=== PATIENT | male | born 1970 | race Caucasian/White ===

== ENCOUNTER 2021-01-12 01:20 | Day surgery (SDC) | payer BC, SELFPAY ==
[2020-12-29 10:27] VITALS: BMI 34.4
[2021-01-12 07:33] VITALS: BP 145/77; PULSE 77; RESP 17; TEMP 35.8; O2SAT 97
[2021-01-12] MEDS: LACTATED RINGERS 1,000 ML 150 ML IV CONT (07:45)
--- NOTE | 2021-01-12 08:28 | WPDANESEPPF ---
Anes - Initial Pre Proc Eval Procedure: Operation Date: 01/12/21 09:00 Proposed Procedures p Colonoscopy - Paul Quinones MD Date/Time: 01/12/21 08:28 Surgeon: Paul Quinones MD Pre Op Diagnosis: positive cologuard Patient Data Age: 50 Gender: M Height: 1.78 m Weight: 109.1 kg Last Vital Signs Temp 96.5 F L 01/12/21 07:33 Pulse 77 01/12/21 07:33 Resp 17 01/12/21 07:33 BP 145/77 H 01/12/21 07:33 Pulse Ox 97 01/12/21 07:33 Allergies Allergy/AdvReac Type Severity Reaction Status Date / Time chlorpromazine Allergy Mild Unknown Verified 01/12/21 07:30 paroxetine Allergy Mild Unknown Verified 01/12/21 07:30 prednisone Allergy Mild Unknown Verified 01/12/21 07:30 sertraline Allergy Mild Unknown Verified 01/12/21 07:30 thioridazine Allergy Mild Unknown Verified 01/12/21 07:30 topiramate Allergy Mild Unknown Verified 01/12/21 07:30 BEE STINGS Allergy Mild Unknown Uncoded 01/12/21 07:30 Home Medications Medication Instructions Recorded Confirmed Type cholecalciferol (vitamin D3) 1,250 1,250 mcg PO WEEKLY cap 07/29/19 01/12/21 History mcg (50,000 unit) capsule duloxetine 60 mg capsule,delayed 120 mg PO DAILY cap 07/29/19 01/12/21 History release olanzapine 20 mg tablet 20 mg PO DAILY 07/29/19 01/12/21 History quetiapine 400 mg tablet 800 mg PO DAILY tablet 07/29/19 01/12/21 History atorvastatin 10 mg tablet 10 mg PO QHS #90 tablet 09/23/20 01/12/21 Rx oxcarbazepine 300 mg tablet 2,100 mg PO DAILY tablet 10/22/20 01/12/21 History fenofibrate nanocrystallized 145 145 mg PO DAILY #90 tablet 12/10/20 01/12/21 Rx mg tablet metoprolol succinate 100 mg 100 mg PO DAILY #90 tablet 12/10/20 01/12/21 Rx tablet,extended release 24 hr levothyroxine 50 mcg tablet 50 mcg PO DAILY #90 tablet 12/21/20 01/12/21 Rx Patient hx anesthesia problems: none Family hx anesthesia problems: none PMFSH Past Medical History Medical History ADD (attention deficit disorder) Bipolar disorder CKD (chronic kidney disease) stage 3, GFR 30-59 ml/min Dyslipidemia Hypertension Hypothyroidism Tachycardia Vitamin D deficiency Family History Family History Father Bipolar 1 disorder Grandparent Bipolar 1 disorder Social History Social History Smoking status: Former smoker Tobacco type: cigarettes Second hand tobacco smoke exposure: No Smoking end date: 07/30/99 Alcohol intake: never Substance use: never Substance use type: does not use Living arrangements: alone Gender identity (if verbalized by the patient): Male Spiritual care concerns: No Agree to blood products: Yes Anes - Eval Final PreProcedure Day of Procedure 01/12/21 08:28 Patient weight: obese Heart: regular rate and rhythm Lungs: clear to auscultation Airway: Mallampati scale class III Neurological: alert and oriented Last oral intake: >/= 8 hours ASA classification: III Emergent: no Anesthetic plan: proceed Anesthesia type and monitoring: general GIVS and standard monitoring Informed Consent: The patient's anesthetic plan and its attendant risks and benefits were discussed with the patient/family/POA. Questions were solicited and answers provided to the satisfaction of the patient/family/POA.
--- NOTE | 2021-01-12 09:02 | PM.HPGS ---
History of Present Illness History of Present Illness Consent: Risks, benefits, and alternatives have been discussed and questions answered. Patient agrees to proceed with procedure. Chief complaint: positive cologuard Narrative: Reggie Houser is a 50 year old male here for positive cologuard, never had a colonoscopy Review of Systems Constitutional: Constitutional: Denies headache(s) and Denies weakness Eyes: Eyes: Denies blurry vision ENT: Reports Normal hearing present, Denies headache(s) and Denies neck pain Cardiovascular: Cardiovascular: Denies chest pain and Denies dyspnea Respiratory: Respiratory: Denies dyspnea Gastrointestinal: Gastrointestinal: Reports no additional gastrointestinal complaints Genitourinary: Genitourinary: Denies dysuria Musculoskeletal: Musculoskeletal: Denies neck pain Integumentary/Breasts: Skin/Breast: Denies dry skin Neurologic: Reports Normal hearing present, Denies headache(s) and Denies weakness Psychiatric: Psychiatric: Denies anxiety Endocrine: Endocrine: Denies change in body appearance Hematologic/Lymphatic: Hematologic/Lymphatic: Denies easy bleeding Allergic/Immunologic: Allergic/Immunologic: Denies urticaria PMFSH Past Medical History Medical History ADD (attention deficit disorder) Bipolar disorder CKD (chronic kidney disease) stage 3, GFR 30-59 ml/min Dyslipidemia Hypertension Hypothyroidism Tachycardia Vitamin D deficiency Family History Family History Father Bipolar 1 disorder Grandparent Bipolar 1 disorder Social History Social History Smoking status: Former smoker Tobacco type: cigarettes Second hand tobacco smoke exposure: No Smoking end date: 07/30/99 Alcohol intake: never Substance use: never Substance use type: does not use Living arrangements: alone Gender identity (if verbalized by the patient): Male Spiritual care concerns: No Agree to blood products: Yes Meds Home Medications and Allergies Home Medications Medication Instructions Recorded Confirmed Type cholecalciferol (vitamin D3) 1,250 1,250 mcg PO WEEKLY cap 07/29/19 01/12/21 History mcg (50,000 unit) capsule duloxetine 60 mg capsule,delayed 120 mg PO DAILY cap 07/29/19 01/12/21 History release olanzapine 20 mg tablet 20 mg PO DAILY 07/29/19 01/12/21 History quetiapine 400 mg tablet 800 mg PO DAILY tablet 07/29/19 01/12/21 History atorvastatin 10 mg tablet 10 mg PO QHS #90 tablet 09/23/20 01/12/21 Rx oxcarbazepine 300 mg tablet 2,100 mg PO DAILY tablet 10/22/20 01/12/21 History fenofibrate nanocrystallized 145 145 mg PO DAILY #90 tablet 12/10/20 01/12/21 Rx mg tablet metoprolol succinate 100 mg 100 mg PO DAILY #90 tablet 12/10/20 01/12/21 Rx tablet,extended release 24 hr levothyroxine 50 mcg tablet 50 mcg PO DAILY #90 tablet 12/21/20 01/12/21 Rx Allergies Allergy/AdvReac Type Severity Reaction Status Date / Time chlorpromazine Allergy Mild Unknown Verified 01/12/21 07:30 paroxetine Allergy Mild Unknown Verified 01/12/21 07:30 prednisone Allergy Mild Unknown Verified 01/12/21 07:30 sertraline Allergy Mild Unknown Verified 01/12/21 07:30 thioridazine Allergy Mild Unknown Verified 01/12/21 07:30 topiramate Allergy Mild Unknown Verified 01/12/21 07:30 BEE STINGS Allergy Mild Unknown Uncoded 01/12/21 07:30 Vital Signs Vital Signs - 24 hr 01/12/21 07:33 Temperature 96.5 F L Pulse Rate 77 Respiratory Rate 17 Blood Pressure 145/77 H Pulse Oximetry 97 Exam Const: General: comfortable and no acute distress HENMT: General nose exam: Normal nares present Eyes: General: appearance normal, both eyes and all related structures Neck: Neck: no JVD Resp: Auscultation: clear to auscultation bilaterally Cardio: Rate: regular rate Rhythm: regular rhyt
[2021-01-12 09:38] VITALS: BP 75/44; PULSE 71; RESP 17; O2SAT 96
--- NOTE | 2021-01-12 09:39 | SUR.OPER ---
transverse colon polyp specimen not retrieved Dr. Landeros notified
[2021-01-12 09:48] VITALS: BP 86/56; PULSE 75; RESP 16; O2SAT 98
[2021-01-12 09:58] VITALS: BP 116/80; PULSE 72; RESP 22; O2SAT 99
== END 2021-01-12 10:07 | disposition home or self-care (01) ==
PROVIDERS: PCP Family Medicine; Visit Provider Internal Medicine Gastroenterology
PROC: 0DJD8ZZ Inspection of Lower Intestinal Tract, Via Natural or Artificial Opening Endoscopic (ICD-10-PCS; CPT 45378; principal; 2021-01-12 09:00)
DX: R19.5 Other fecal abnormalities (principal); K63.5 Polyp of colon; I12.9 Hypertensive chronic kidney disease with stage 1 through stage 4 chronic kidney disease, or unspecified chronic kidney disease; N18.30 Chronic kidney disease, stage 3 unspecified; E03.9 Hypothyroidism, unspecified; E55.9 Vitamin D deficiency, unspecified; F31.9 Bipolar disorder, unspecified; F98.8 Other specified behavioral and emotional disorders with onset usually occurring in childhood and adolescence; Z87.891 Personal history of nicotine dependence
CPT/HCPCS: 45385; J2704; J7120

== ENCOUNTER 2021-12-18 15:22 | Emergency (ER) | payer OTHER, BC, SELFPAY ==
[2021-12-18 15:39] VITALS: BP 129/85; PULSE 87; RESP 20; TEMP 37.3; O2SAT 98
--- NOTE | 2021-12-18 15:58 | ED.WOUNDLAC ---
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 Patient work at [employer]. He currently rates his pain 2/10 and has tried no [id number] treatment prior to arrival. He is up-to-date on his tetanus vaccine. Related Data Home Medications Medication Instructions Recorded Confirmed duloxetine 60 mg capsule,delayed 120 mg PO DAILY 07/29/19 10/11/21 release olanzapine 20 mg tablet 20 mg PO DAILY 07/29/19 10/11/21 quetiapine 400 mg tablet 800 mg PO DAILY 07/29/19 10/11/21 oxcarbazepine 600 mg tablet 1,200 mg PO BID 10/11/21 10/11/21 (Trileptal) Allergies Allergy/AdvReac Type Severity Reaction Status Date / Time chlorpromazine Allergy Mild Unknown Verified 10/11/21 13:00 paroxetine Allergy Mild Unknown Verified 10/11/21 13:00 prednisone Allergy Mild Unknown Verified 12/18/21 15:48 sertraline Allergy Mild Unknown Verified 10/11/21 13:00 thioridazine Allergy Mild Unknown Verified 10/11/21 13:00 topiramate Allergy Mild Unknown Verified 10/11/21 13:00 BEE STINGS Allergy Mild Unknown Uncoded 10/11/21 13:00 Review of Systems Review of Systems: CONSTITUTIONAL: Denies body aches, fever, chills, or sweats. EYES: Denies visual changes, redness, or discharge. ENT: Denies rhinorrhea, congestion, sore throat, or otalgia. CARDIOVASCULAR: Denies chest pain, palpitations, or edema. RESPIRATORY: Denies cough or dyspnea. GASTROINTESTINAL: Denies abdominal pain, nausea, vomiting, or diarrhea. GENITOURINARY: Denies dysuria or hematuria. SKIN: Denies rash, itching. + Wounds to left hand and left knee. MUSCULOSKELETAL: Denies back pain, joint pain, or myalgia. NEUROLOGIC: Denies headache, numbness, tingling, or weakness. PSYCH: Denies depression or anxiety. [facility] Past Medical History Medical History ADD (attention deficit disorder) Bipolar disorder CKD (chronic kidney disease) stage 3, GFR 30-59 ml/min Dyslipidemia Hypertension Hypothyroidism Tachycardia Vitamin D deficiency Family History Family History Father Bipolar 1 disorder Grandparent Bipolar 1 disorder Social History Social History Tobacco type: cigarettes Second hand tobacco smoke exposure: No Smoking end date: 07/30/99 Alcohol intake: never Substance use: never Substance use type: does not use Gender identity (if verbalized by the patient): Male Spiritual care concerns: No Agree to blood products: Yes Comments At time of signature, I have reviewed and agree with nursing past medical, surgical, social and family history unless otherwise noted. Please see nursing chart for further information. There is no relevant family history pertinent to the presenting complaint Exam Narrative: GENERAL: Well-appearing, well-nourished, and in no acute distress. HEAD: Normocephalic, atraumatic. EYES: EOMI. No redness or drainage. Conjunctivae normal. ENT: Mucous membranes pink and moist. NECK: Normal AROM. CHEST: No respiratory distress. EXTREMITIES: Left hand: 1 x 1 cm area of superficial almost full skin avulsion to the base of the fifth finger. The skin still does overlie the underlying tissue by a small connect area. There is no bony tenderness of the hand or fingers. Distal sensation intact. Capillary refill normal. Radial pulse normal. Full range of motion of all fingers without pain. No edema or ecchymosis. Left knee: Patient has a 7 x 4 cm area of multiple linear abrasions overlying the patella with mild surrounding
== END 2021-12-18 16:08 | disposition home or self-care (01) ==
PROVIDERS: Emergency Provider Nurse Practitioner; PCP Family Medicine
DX: S61.402A Unspecified open wound of left hand, initial encounter (principal); S81.002A Unspecified open wound, left knee, initial encounter; W10.9XXA Fall (on) (from) unspecified stairs and steps, initial encounter; Y99.0 Civilian activity done for income or pay; I12.9 Hypertensive chronic kidney disease with stage 1 through stage 4 chronic kidney disease, or unspecified chronic kidney disease; N18.30 Chronic kidney disease, stage 3 unspecified; E78.5 Hyperlipidemia, unspecified; E03.9 Hypothyroidism, unspecified; F31.9 Bipolar disorder, unspecified; Z87.891 Personal history of nicotine dependence
CPT/HCPCS: 99212; G0463

== ENCOUNTER → 2022-04-12 09:00 | Outpatient (CLI) | payer BC, SELFPAY ==
--- NOTE | ~2022-04-12 | XR_ITS ---
EXAMINATION: XR chest 2V DATE: 04/12/2022 09:22 INDICATION: Unspecified asthma, uncomplicated. Cough. TECHNIQUE: Frontal and lateral views of the chest were obtained. COMPARISON: Chest single view 08/21/2007 FINDINGS: The chest demonstrates clear lungs without pneumonia, pleural effusion, or pneumothorax. Ca rdiomegaly is noted. IMPRESSION: 1. Cardiomegaly. Reviewed, dictated and finalized at location B. IMPRESSION: 1. Cardiomegaly.
== END ==
PROVIDERS: PCP Family Medicine; Visit Provider Family Medicine
DX: J45.909 Unspecified asthma, uncomplicated (principal); I51.7 Cardiomegaly
CPT/HCPCS: 71046

== ENCOUNTER 2023-02-02 02:42 | Day surgery (SDC) | payer BC, SELFPAY ==
[2023-01-27 08:41] VITALS: BMI 34.4
[2023-02-02 09:26] VITALS: BP 119/77; PULSE 82; RESP 17; TEMP 36.3; O2SAT 97; BMI 34.9
[2023-02-02] MEDS: LACTATED RINGERS 1,000 ML 150 ML IV CONT (09:34)
--- NOTE | 2023-02-02 09:47 | WPDANESEPPF ---
Anes - Initial Pre Proc Eval Procedure: Operation Date: 02/02/23 10:30 Proposed Procedures p Colonoscopy - Paul Quinones MD Date/Time: 02/02/23 09:47 Surgeon: Paul Quinones MD Pre Op Diagnosis: hx colon polyps Patient Data Age: 52 Gender: M Height: 1.78 m Weight: 110.3 kg Last Vital Signs Temp 97.3 F L 02/02/23 09:26 Pulse 82 02/02/23 09:26 Resp 17 02/02/23 09:26 BP 119/77 02/02/23 09:26 Pulse Ox 97 02/02/23 09:26 O2 Del Method Room Air 02/02/23 09:26 Allergies Allergy/AdvReac Type Severity Reaction Status Date / Time chlorpromazine Allergy Mild Unknown Verified 02/02/23 09:24 paroxetine Allergy Mild Unknown Verified 02/02/23 09:24 prednisone Allergy Mild Unknown Verified 02/02/23 09:24 sertraline Allergy Mild Unknown Verified 02/02/23 09:24 thioridazine Allergy Mild Unknown Verified 02/02/23 09:24 topiramate Allergy Mild Unknown Verified 02/02/23 09:24 BEE STINGS Allergy Mild Unknown Uncoded 02/02/23 09:24 Home Medications Medication Instructions Recorded Confirmed Type duloxetine 60 mg capsule,delayed 120 mg PO DAILY 07/29/19 02/02/23 History release olanzapine 20 mg tablet 20 mg PO DAILY 07/29/19 02/02/23 History quetiapine 400 mg tablet 800 mg PO DAILY 07/29/19 02/02/23 History metoprolol succinate 100 mg 100 mg PO DAILY #90 tabs 09/02/22 02/02/23 Rx tablet,extended release 24 hr fenofibrate nanocrystallized 145 145 mg PO DAILY #90 tabs 09/21/22 02/02/23 Rx mg tablet cholecalciferol (vitamin D3) 50 50 mcg PO DAILY #90 tabs 10/12/22 02/02/23 Rx mcg (2,000 unit) tablet levothyroxine 75 mcg tablet 75 mcg PO DAILY #90 tabs 10/12/22 02/02/23 Rx oxcarbazepine 600 mg tablet 1,800 mg PO BID 10/18/22 02/02/23 History (Trileptal) atorvastatin 10 mg tablet 10 mg PO QHS #90 tabs 12/22/22 02/02/23 Rx memantine 5 mg tablet 10 mg PO BID 01/27/23 02/02/23 History propranolol 20 mg tablet 40 mg PO BID 01/27/23 02/02/23 History Patient hx anesthesia problems: none Family hx anesthesia problems: none Results Review: All pre-operative results and documents have been reviewed as part of the pre-operative evaluation. [facility] Past Medical History Medical History ADD (attention deficit disorder) Bipolar disorder CKD (chronic kidney disease) stage 3, GFR 30-59 ml/min Dyslipidemia Hypertension Hypothyroidism Positive colorectal cancer screening using Cologuard test (~10/2020) Somnolence, daytime, controlled Tachycardia Vitamin D deficiency Family History Family History Father Bipolar 1 disorder Grandparent Bipolar 1 disorder Social History Social History Smoking status: Former smoker Tobacco type: cigarettes Second hand tobacco smoke exposure: No Smoking end date: 07/30/99 Alcohol intake: never Substance use: never Substance use type: does not use Lack of Transportation: No Lack of Food: Never True Current Housing: I Have Housing Concerned About Future Housing: No Difficulty Paying Gas/Electric Bills: No Difficulty Paying for Meds: No Currently Unemployed: No Education: Bachelor's Degree Difficulty w/ Childcare or Family Care: No Living arrangements: alone Occupation/Education: occupation Gender identity (if verbalized by the patient): Male Spiritual care concerns: No Agree to blood products: Yes Anes - Eval Final PreProcedure Day of Procedure 02/02/23 09:47 Patient weight: obese Heart: regular rate and rhythm Lungs: clear to auscultation Airway: Mallampati scale class II Neurological: alert and oriented Last oral intake: >/= 8 hours ASA classification: III Emergent: no Anesthetic plan: proceed Anesthesia type and monitoring: general GIVS and standard monitoring Results Review: All pre-operative results and docu
--- NOTE | 2023-02-02 10:06 | PM.HPGS ---
History of Present Illness History of Present Illness Consent: Risks, benefits, and alternatives have been discussed and questions answered. Patient agrees to proceed with procedure. Chief complaint: hx colon polyps Narrative: Reggie Houser is a 52 year old male with colon polyp in 2020, prep was not the best Review of Systems Constitutional: Constitutional: Denies headache(s) and Denies weakness Eyes: Eyes: Denies blurry vision ENT: Reports Normal hearing present, Denies headache(s) and Denies neck pain Cardiovascular: Cardiovascular: Denies chest pain and Denies dyspnea Respiratory: Respiratory: Denies dyspnea Gastrointestinal: Gastrointestinal: Reports no additional gastrointestinal complaints Genitourinary: Genitourinary: Denies dysuria Musculoskeletal: Musculoskeletal: Denies neck pain Integumentary/Breasts: Skin/Breast: Denies dry skin Neurologic: Reports Normal hearing present, Denies headache(s) and Denies weakness Psychiatric: Psychiatric: Denies anxiety Endocrine: Endocrine: Denies change in body appearance Hematologic/Lymphatic: Hematologic/Lymphatic: Denies easy bleeding Allergic/Immunologic: Allergic/Immunologic: Denies urticaria PMFSH Past Medical History Medical History (Updated 02/02/23 @ 10:07 by Paul Quinones MD) ADD (attention deficit disorder) Bipolar disorder CKD (chronic kidney disease) stage 3, GFR 30-59 ml/min Colon polyp Dyslipidemia Hypertension Hypothyroidism Positive colorectal cancer screening using Cologuard test (~10/2020) Somnolence, daytime, controlled Tachycardia Vitamin D deficiency Family History Family History Father Bipolar 1 disorder Grandparent Bipolar 1 disorder Social History Social History Smoking status: Former smoker Tobacco type: cigarettes Second hand tobacco smoke exposure: No Smoking end date: 07/30/99 Alcohol intake: never Substance use: never Substance use type: does not use Lack of Transportation: No Lack of Food: Never True Current Housing: I Have Housing Concerned About Future Housing: No Difficulty Paying Gas/Electric Bills: No Difficulty Paying for Meds: No Currently Unemployed: No Education: Bachelor's Degree Difficulty w/ Childcare or Family Care: No Living arrangements: alone Occupation/Education: occupation Gender identity (if verbalized by the patient): Male Spiritual care concerns: No Agree to blood products: Yes Meds Home Medications and Allergies Home Medications Medication Instructions Recorded Confirmed Type duloxetine 60 mg capsule,delayed 120 mg PO DAILY 07/29/19 02/02/23 History release olanzapine 20 mg tablet 20 mg PO DAILY 07/29/19 02/02/23 History quetiapine 400 mg tablet 800 mg PO DAILY 07/29/19 02/02/23 History metoprolol succinate 100 mg 100 mg PO DAILY #90 tabs 09/02/22 02/02/23 Rx tablet,extended release 24 hr fenofibrate nanocrystallized 145 145 mg PO DAILY #90 tabs 09/21/22 02/02/23 Rx mg tablet cholecalciferol (vitamin D3) 50 50 mcg PO DAILY #90 tabs 10/12/22 02/02/23 Rx mcg (2,000 unit) tablet levothyroxine 75 mcg tablet 75 mcg PO DAILY #90 tabs 10/12/22 02/02/23 Rx oxcarbazepine 600 mg tablet 1,800 mg PO BID 10/18/22 02/02/23 History (Trileptal) atorvastatin 10 mg tablet 10 mg PO QHS #90 tabs 12/22/22 02/02/23 Rx memantine 5 mg tablet 10 mg PO BID 01/27/23 02/02/23 History propranolol 20 mg tablet 40 mg PO BID 01/27/23 02/02/23 History Allergies Allergy/AdvReac Type Severity Reaction Status Date / Time chlorpromazine Allergy Mild Unknown Verified 02/02/23 09:24 paroxetine Allergy Mild Unknown Verified 02/02/23 09:24 prednisone Allergy Mild Unknown Verified 02/02/23 09:24 sertraline Allergy Mild Unknown Verified 02/02/23 09:24 thioridazine Allergy Mild Unknown Verified 02/02/23 09:24 topiramate Allergy
[2023-02-02 10:26] VITALS: BP 111/73; PULSE 79; RESP 19; O2SAT 95
[2023-02-02 10:36] VITALS: BP 117/76; PULSE 79; RESP 19; O2SAT 97
[2023-02-02 10:46] VITALS: BP 125/80; PULSE 78; RESP 15; O2SAT 97
== END 2023-02-02 10:53 | disposition home or self-care (01) ==
PROVIDERS: PCP Family Medicine; Visit Provider Internal Medicine Gastroenterology
PROC: 0DJD8ZZ Inspection of Lower Intestinal Tract, Via Natural or Artificial Opening Endoscopic (ICD-10-PCS; CPT 45378; principal; 2023-02-02 10:30)
DX: Z09 Encounter for follow-up examination after completed treatment for conditions other than malignant neoplasm (principal); K63.5 Polyp of colon; K64.8 Other hemorrhoids; F98.8 Other specified behavioral and emotional disorders with onset usually occurring in childhood and adolescence; I12.9 Hypertensive chronic kidney disease with stage 1 through stage 4 chronic kidney disease, or unspecified chronic kidney disease; N18.30 Chronic kidney disease, stage 3 unspecified; E78.5 Hyperlipidemia, unspecified; E03.9 Hypothyroidism, unspecified; R40.0 Somnolence; F31.9 Bipolar disorder, unspecified; R00.0 Tachycardia, unspecified; E55.9 Vitamin D deficiency, unspecified; Z87.891 Personal history of nicotine dependence; E66.9 Obesity, unspecified; Z68.34 Body mass index [BMI] 34.0-34.9, adult
CPT/HCPCS: 45385; 45380; 88305; J2704; J7120

== ENCOUNTER 2024-09-03 08:01 | Emergency (ER) | payer BC, SELFPAY ==
--- NOTE | 2024-09-03 08:23 | ED.URI ---
HPI - URI/Sore Throat General Chief Complaint: Upper Respiratory Infection Stated Complaint: cough symptoms Time Seen by Provider: 09/03/24 08:22 Source: patient Mode of arrival: ambulatory Limitations: no limitations History of Present Illness HPI Narrative: Reggie is a 53-year-old male patient presenting to the clinic today with complaints of a cough. He had influenza A back on August 05. He has been having a dry nonproductive cough x5 weeks. He denies any chest pain or shortness of breath. Denies any nasal congestion or sore throat. Has felt feverish at times but has not checked his temperature. MD elicited complaint: cough Related Data Home Medications ?Medication ?Instructions ?Recorded ?Confirmed ?Last Taken ?Type quetiapine 400 mg tablet 800 mg PO DAILY 07/29/19 08/05/24 Unknown History duloxetine 60 mg capsule,delayed 120 mg PO DAILY 11/29/23 08/05/24 Unknown History release (Cymbalta) olanzapine 20 mg tablet (Zyprexa) 20 mg PO DAILY 11/29/23 08/05/24 Unknown History memantine 10 mg tablet 10 mg PO QPM 06/11/24 08/05/24 Unknown History oxcarbazepine 600 mg tablet 900 mg PO BID 06/11/24 08/05/24 Unknown History (Trileptal) propranolol 80 mg tablet 80 mg PO BID 06/11/24 08/05/24 Unknown History propranolol 20 mg tablet mg PO 07/26/24 08/05/24 Unknown History Allergies Allergy/AdvReac Type Severity Reaction Status Date / Time chlorpromazine Allergy Mild Unknown Verified 09/03/24 08:31 paroxetine Allergy Mild Unknown Verified 09/03/24 08:31 prednisone Allergy Mild Unknown Verified 09/03/24 08:31 sertraline Allergy Mild Unknown Verified 09/03/24 08:31 thioridazine Allergy Mild Unknown Verified 09/03/24 08:31 topiramate Allergy Mild Unknown Verified 09/03/24 08:31 BEE STINGS Allergy Mild Unknown Uncoded 09/03/24 08:31 Review of Systems Review of Systems: Pertinent positives per HPI. Patient denies any rash, headache, visual changes, dizziness, shortness of breath, chest pain, palpitations, nausea, vomiting, diarrhea, constipation, abdominal pain, or any urinary issues. [facility] Past Medical History Medical History Colon polyp Somnolence, daytime, controlled Positive colorectal cancer screening using Cologuard test (~10/2020) Vitamin D deficiency CKD (chronic kidney disease) stage 3, GFR 30-59 ml/min Tachycardia Dyslipidemia ADD (attention deficit disorder) Bipolar disorder Hypertension Hypothyroidism Family History Family History Father Bipolar 1 disorder Grandparent Bipolar 1 disorder Social History Social History Smoking status: Former smoker Tobacco type: cigarettes Second hand tobacco smoke exposure: No Smoking end date: 07/30/99 Alcohol intake: never Substance use: never Substance use type: does not use Lack of Transportation: No Lack of Food: Never True Current Housing: I Have Housing Concerned About Future Housing: No Difficulty Paying Gas/Electric Bills: No Difficulty Paying for Meds: No Currently Unemployed: No Education: Bachelor's Degree Difficulty w/ Childcare or Family Care: No Living arrangements: alone Occupation/Education: occupation Gender identity (if verbalized by the patient): Male Spiritual care concerns: No Agree to blood products: Yes Comments At the time of my signature, I reviewed and agree with the nursing past medical, surgical, social, and family history. There is no relevant family history pertinent to the patient complaint. Exam Narrative: General: Well-developed, well nourished, in no apparent distress Head: Normocephalic, atraumatic Eyes: Pupils equally round and reactive to light bilaterally, EOM intact, sclera and conjunctive clear, no discharge, lids normal Ears: TMs intact and clear, ear canals clear, no drainage, grossly hearing normal. Nose: Nares patent, no discharge, no inflammation, no sinus tenderness. Mouth: Oral pharynx without lesions or masses, good dentition, MMM. Neck: Supple, trachea midline, no enlargement of anterior or posterior cervical nodes, no thyroid masses or goiter palpable. Cardio: Regular rate and rhythm, s1 and s2 normal, no murmur appreciated. Resp: Clear to auscultation bilaterally, no rhonchi, rales, wheezing or rubs Course Course Emergency Course: Portions of this record may have been created with voice recognition software. Level of Care: Express Care Visit Vital Signs Vital signs: Vital Signs Temperature 36.4 C 09/03/24 08:36 Pulse Rate 80 09/03/24 08:36 Respiratory Rate 18 09/03/24 08:36 Blood Pressure 109/67 09/03/24 08:36 Pulse Oximetry 98 09/03/24 08:36 Temperature 36.4 C 09/03/24 08:36 Pulse Rate 80 09/03/24 08:36 Respiratory Rate 18 09/03/24 08:36 Blood Pressure 109/67 09/03/24 08:36 Pulse Oximetry 98 09/03/24 08:36 Vital signs reviewed MDM - URI/Sore Throat MDM Narrative Medical decision making narrative: At the time of visit patient is resting comfortably on the exam table. Patient appears to be nontoxic. Plan: I suspect patient has post viral cough syndrome. Prescription for Tessalon Perles was sent to the pharmacy. Patient is unable to take any steroids as this makes him manic. Supportive measures were discussed with the patient and they voiced understanding discharge instructions and agrees to treatment plan. Return precautions reviewed. Differential Diagnosis Differential diagnosis: Likely upper respiratory infection, otitis media, sinusitis, viral infection, bronchitis, influenza, pharyngitis and other (COVID) Discharge Plan Discharge Clinical Impression: Post-viral cough syndrome Patient Disposition: Home, Self-Care Condition: Stable Instructions: Antibiotic Form, Acute Cough (ED) Additional Instructions: This cough could last for up to 3 months. Take prescription medications only as prescribed-Tessalon Perles Increase fluids and stay well hydrated Tylenol/motrin for pain/fever Flonase and OTC antihistamines such as Zyrtec or Claritin daily as directed Go to the ED if you develop a worsening in your condition- high fever not controlled by Tylenol or Motrin, dehydration, weakness, lethargy, shortness of breath, or chest pain. Follow up with your PCP in 3-5 days if symptoms persist. Patient Language: Croatian Prescriptions: New benzonatate 200 mg capsule 200 mg PO TID 7 Days Qty: 21 0RF No Action quetiapine 400 mg tablet 800 mg PO DAILY oxcarbazepine [Trileptal] 600 mg tablet 900 mg PO BID Patient Comments: Patient takes 1 tablet in the morning and 2 tablets at PM. olanzapine [Zyprexa] 20 mg tablet 20 mg PO DAILY duloxetine [Cymbalta] 60 mg capsule,delayed release(DR/EC) 120 mg PO DAILY memantine 10 mg tablet 10 mg PO QPM propranolol 80 mg tablet 80 mg PO BID propranolol 20 mg tablet PO metoprolol succinate 100 mg tablet extended release 24 hr 100 mg PO DAILY Qty: 90 1RF fenofibrate nanocrystallized 145 mg tablet 145 mg PO DAILY Qty: 90 1RF levothyroxine 75 mcg tablet 75 mcg PO DAILY Qty: 90 1RF atorvastatin 10 mg tablet 10 mg PO QHS Qty: 90 1RF Follow-up/Referrals: Elysia Yoder MD [Primary Care Provider] - Time of Disposition: 08:43 Quality NIHSS Nursing Documentation ED NIHSS nursing documentation: reviewed/agree
[2024-09-03 08:36] VITALS: BP 109/67; PULSE 80; RESP 18; TEMP 36.4; O2SAT 98
== END 2024-09-03 08:45 | disposition home or self-care (01) ==
PROVIDERS: Emergency Provider Nurse Practitioner Family; PCP Family Medicine
DX: R05.8 Other specified cough (principal); Z87.891 Personal history of nicotine dependence; I12.9 Hypertensive chronic kidney disease with stage 1 through stage 4 chronic kidney disease, or unspecified chronic kidney disease; N18.30 Chronic kidney disease, stage 3 unspecified; E78.5 Hyperlipidemia, unspecified; E03.9 Hypothyroidism, unspecified; F31.9 Bipolar disorder, unspecified
CPT/HCPCS: 99213; G0463